=== PATIENT | male | born 1975 | race Caucasian/White ===

== ENCOUNTER → 2016-12-01 | Outpatient (CLI) | payer OTHER ==
[~2016-12-01] MED LIST: IOHEXOL 300 MG/ML 75 ML VIAL. IV ONE
--- NOTE | 2016-12-01 11:27 | RAD ---
CTA of the chest with contrast, 12/01/2016: History: Follow-up dilatation of the aortic root Multidetector CT imaging was performed following an IV bolus injection of iodinated contrast material. Multiplanar reconstructions were produced as well as 3-D volume rendered reconstructions of the aorta. There are extensive pulsation type artifacts at the level of the aortic root and ascending aorta. This makes measurements difficult. On the coronal images, the aortic root measures approximately 3.5 cm in width which is within normal limits. In the other planes its dimension is accentuated by obliquity of orientation. The aortic arch and descending aorta are of normal caliber. No significant calcific plaquing is evident. No coronary artery calcifications are seen. The heart is mildly enlarged. No mediastinal or hilar adenopathy is seen. There is mild dependent atelectasis in both lungs. No pulmonary mass or significant consolidation is seen. There is no evidence of pleural fluid. IMPRESSION: 1. Mild cardiomegaly. 2. The aortic root does not appear to be significantly dilated, although the proximal aorta is not optimally delineated on these scans due to multiple pulsation artifacts. Echocardiography should be considered for further evaluation. PQRS Compliance Statement: One or more of the following individualized dose reduction techniques were utilized for this examination: 1. Automated exposure control 2. Adjustment of the mA and/or kV according to patient size 3. Use of iterative reconstruction technique
== END | disposition home or self-care (01) ==
LOC: CT 07:35
PROVIDERS: ATTEND Internal Medicine Cardiovascular Disease
DX: I51.7 Cardiomegaly (principal); J98.11 Atelectasis; Q23.1 Congenital insufficiency of aortic valve
CPT/HCPCS: 71275; Q9967

== ENCOUNTER → 2018-04-05 | Outpatient (CLI) | payer OTHER ==
--- NOTE | 2018-04-05 11:04 | CARD ---
MR#: [id number] Date of Study: 04/05/2018 Ordering Physician: PETER HUMPHREY, Referring Physician: PETER HUMPHREY, Tech: NOEMI Meng APPROVED REPORT EXAM: Two-dimensional and M-mode echocardiogram with Doppler and color Doppler. Other Information Quality : GoodHR: 57bpm INDICATION Congenital Heart Disease 2D DIMENSIONS RVDd3.5 (2.9-3.5cm)Left Atrium(2D)3.2 (1.6-4.0cm) IVSd1.1 (0.7-1.1cm)Aortic Root(2D)4.1 (2.0-3.7cm) LVDd6.8 (3.9-5.9cm)LVOT Diameter2.8 (1.8-2.4cm) PWd1.1 (0.7-1.1cm)LVDs4.5 (2.5-4.0cm) FS (%) 34.4 %SV150.8 ml LVEF(%)62.1 (>50%) Aortic Valve AoV Peak Fabio.145.2cm/sAoV VTI35.1cm AO Peak GR.8.4mmHgLVOT Peak Fabio.76.5cm/s LVOT VTI 18.25cmAO Mean GR.5mmHg GARTH (VMAX)3.37sh1SMH (VTI)3.12cm2 AI P 1/2 Sqpn840qk Mitral Valve MV E Ssowjpgy55.5cm/sMV DECEL LNZN549ps MV A Qftvoiiy64.4cm/sE/A Ratio1.6 Pulmonary Valve PV Peak Lthkmufx717.6cm/sPV Peak Grad.7mmHg LEFT VENTRICLE The Left Ventricle is mild to moderately dilated. LVIDD - 6.8 cm (limited measurement) There is vernon l left ventricular wall thickness. The left ventricular systolic function is normal. EF 55% There is normal LV segmental wall motion. The left ventricular diastolic function and filling is normal for ag e. RIGHT VENTRICLE The right ventricle is normal size. The right ventricular systolic function is normal. ATRIA The left atrium size is normal. The right atrium size is normal. The interatrial septum is intact wit h no evidence for an atrial septal defect or patent foramen ovale as noted on 2-D or Doppler imaging. AORTIC VALVE The aortic valve is bicuspid. The aortic valve is mildly thickened. Doppler and Color Flow revealed a n eccentric jet of aortic insufficiency directed against the anterior mitral leaflet. Doppler and Col or Flow revealed mild to moderate aortic regurgitation. There is no significant aortic valvular steno sis. There is no aortic valvular vegetation. MITRAL VALVE The mitral valve is mildly thickened. There is no evidence of mitral valve prolapse. There is no mitr al valve stenosis. Doppler and Color Flow revealed no mitral valve regurgitation noted. TRICUSPID VALVE The tricuspid valve leaflets are thickened , but open well. Doppler and Color Flow revealed no tricus pid valve regurgitation noted. There is no tricuspid valve prolapse or vegetation. There is no tricus pid valve stenosis. PULMONIC VALVE The pulmonary valve is normal in structure and function. Doppler and Color Flow revealed no pulmonic valvular regurgitation. There is no pulmonic valvular stenosis. GREAT VESSELS The aortic root is mildly enlarged. The IVC was not visualized. PERICARDIAL EFFUSION There is no pleural effusion. There is no evidence of significant pericardial effusion. Critical Notification Critical Value: No <Conclusion> The Left Ventricle is mild to moderately dilated. LVIDD - 6.8 cm (limited measurement) The left ventricular systolic function is normal. EF 55% There is normal LV segmental wall motion. The aortic valve is bicuspid. The aortic valve is mildly thickened. Doppler and Color Flow revealed an eccentric jet of aortic insufficiency directed against the anterio r mitral leaflet. Doppler and Color Flow revealed mild to moderate aortic regurgitation. Signed by : Peter Humphrey, Electronically Approved : 04/05/2018 11:02:59
== END | disposition home or self-care (01) ==
LOC: ECHO 08:07
PROVIDERS: ATTEND Internal Medicine Cardiovascular Disease
DX: I35.1 Nonrheumatic aortic (valve) insufficiency (principal)
CPT/HCPCS: 93306

== ENCOUNTER 2020-02-11 01:14 | Emergency (ER) | payer OTHER ==
[~2020-02-11] VITALS: Ht 180.3 cm; Wt 109.6 kg
--- NOTE | 2020-02-11 01:20 | PHYS DOC ---
Past History Past Medical History: Kidney Stones General Adult HPI: HPI: ".. I ve been having this pain .. on and off the past couple weeks.. they did an US the other day.. in case it was a gall bladder.. but they said it was negative... the pain came on really strong tonight... in this Rt. flank radiates down.. It is kind like when I had a kidney stone a long time ago..." Patient is a 45 year old male who presents with above hx and complaints of severe right flank abdomen pain that radiates to his groin area. Patient states pain is similar to a previous episode of kidney stones. Patient underwent a ultrasound this week at [place] at that time they advised that his gallbladder w as normal. Did eat at approximately 7:30 PM. No history of bad food. No history of recent travel outside the [place] area. No specific ill contacts. Patient states pain awoke him from sleep and feels like someone is stabbing him in his right flank. Patient is nauseated. Has had diaphoresis. Patient denies any trauma. Patient does have a family history of kidney stones with grandfather. Review of Systems: Review of Systems: Constitutional: Denies fever or chills Eyes: Denies change in visual acuity HENT: Denies nasal congestion or sore throat Respiratory: Denies cough or shortness of breath Cardiovascular: Denies chest pain or edema GI: Complaints of Rt. flank abdominal pain, nausea, . Denies vomiting, bloody stools or diarrhea : Denies dysuria Musculoskeletal: Complaints of Lt. flank pain. Integument: Denies rash Neurologic: Denies headache, focal weakness or sensory changes Endocrine: Denies polyuria or polydipsia Lymphatic: Denies swollen glands Psychiatric: Denies depression or anxiety Heart Score: HEART Score for Chest Pain: HEART Score for Chest Pain Response (Comments) Value History Slighlty/Non-Suspicious 0 ECG Nonspecific Repolarizatio 1 Age >45 - < 65 1 Risk Factors 1 or 2 Risk Factors 1 Troponin < Normal Limit 0 Total 3 Risk Factors: Risk Factors: DM, Current or recent (<one month) smoker, HTN, HLP, family history of CAD, obesity. Risk Scores: Score 0 - 3: 2.5% MACE over next 6 weeks - Discharge Home Score 4 - 6: 20.3% MACE over next 6 weeks - Admit for Clinical Observation Score 7 - 10: 72.7% MACE over next 6 weeks - Early Invasive Strategies Family History: Family History: Kidney stones with grandfather Current Medications: Current Meds: See nursing for home meds Allergies: Allergies: Allergies Coded Allergies Type Severity Reaction Last Updated Verified No Known Drug Allergies 06/03/16 No Physical Exam: PE: Constitutional: , in acute distress, non-toxic appearance. [] HENT: Normocephalic, atraumatic, bilateral external ears normal, oropharynx moist, no oral exudates, nose normal. [] Eyes: PERRLA, EOMI, conjunctiva normal, no discharge. [] Glasses Neck: Normal range of motion, no tenderness, supple, no stridor. [] Cardiovascular: Tachycardia heart rate regular rhythm, aortic murmur [] Lungs & Thorax: Bilateral breath sounds equal apex on auscultation [] Abdomen: Bowel sounds decreased, soft, right flank tenderness, no masses, no pulsatile masses. [] Mild rebound to right flank Skin: Warm, dry, no erythema, no rash. [] Back: No tenderness, right CVA tenderness. [] Extremities: No tenderness, no cyanosis, no clubbing, ROM intact, no edema. [] No psoas muscle sign. Neurologic: Alert and oriented X 3, normal motor function, normal sensory funct ion, no focal deficits noted. [] Psychologic: Affect anxious , judgement normal, mood normal. [] EKG: EKG: My interpretation EKG shows a sinus rhythm at 70 bpm. Does have leftward axis changes. But no findings of acute STEMI with contralateral changes [] Radiology/Procedures: Radiology/Procedures: [][address] [address] IMAGING REPORT Signed PATIENT: ADEEL FONTAINE ACCOUNT: [id number] : 1975 LOCATION: ER AGE: 45 SEX: M EXAM STATUS: REG ER ORD. PHYSICIAN: SNOW FAIRCHILD MD REASON: pain PROCEDURE: CT ABDOMEN PELVIS WO CONTRAST CT scan abdomen and pelvis without contrast 02/11/2020 CLINICAL HISTORY: Abdominal pain. TECHNIQUE: Unenhanced, contiguous, 3 mm axial sections were obtained through abdomen and pelvis. One or more of the following individualized dose reduction techniques were utilized for this study: 1. Automated exposure control. 2. Adjustment of the mA and/or kV according to patient size. 3. Use of iterative reconstruction technique. FINDINGS: Images through the lung bases demonstrate minimal dependent subsegmental atelectasis bilaterally. The liver parenchyma has a decreased attenuation consistent with mild fatty infiltration. The spleen, pancreas, and adrenal glands are within normal limits. Bilateral nonobstructing renal calculi are seen which measure 2 to 3 mm in size. Rounded low-attenuation lesions are seen involving the left kidney which measure 1 to 2.3 cm in size. These likely represent cysts. No further imaging workup is recommended. Mild dilatation of the right intrarenal collecting system is seen. The right ureter is mildly dilated throughout its course. Within the distal right ureter approximately 1 cm lateral to the right UVJ a 4 mm distal right ureteral calculus is seen which is causing mild obstruction of the right collecting system. There is no evidence of obstruction of the left collecting system. The abdominal aorta tapers normally. The gallbladder is contracted. No free fluid or free air is seen within the abdomen. There is no evidence of bowel obstruction. The appendix is well-visualized and is within normal limits. Images through the pelvis demonstrate the urinary bladder to be contracted. No free fluid is seen. Minimal S-shaped curvature of the thoracolumbar spine is noted. IMPRESSION: 4 mm distal right ureteral calculus is seen which is causing mild obstruction of the right collecting system. Electronically signed by: Scottie He MD (02/11/2020 4:24 AM) [id number] DICTATED AND SIGNED BY: SCOTTIE HE MD DATE: 02/11/20 0424 CC: KIARRA LARA; SNOW FAIRCHILD MD ~ Course & Med Decision Making: Course & Med Decision Making Pertinent Labs and Imaging studies reviewed. (See chart for details) Patient to push clear fluids. Take Tylenol and ibuprofen for pain for marked pain may take Vicoprofen. Patient to take Flomax 0.4 mg nightly. Patient warned this may cause hypotension. Save stone if passed. May take Vicoprofen up to 4 times a day for marked pain. Follow-up with urology. Follow-up primary care. Return if any concerns. Patient given a copy of CT findings for him to follow-up at [place]. Return if any concerns. Impression: 1. Abdomen pain 2. Renal Colic-has distal 4 mm right ureter stone with mild hydronephrosis 3. Mild elevation creatinine 1.7 4. Diabetes glucose 144 [] Dragon Disclaimer: Dragon Disclaimer: This electronic medical record was generated, in whole or in part, using a voice recognition dictation system. Departure Departure: Disposition: HOME/RESIDENCE PRIOR TO ADM Condition: STABLE Referrals: KIARRA LARA (PCP) Scripts Tamsulosin Hcl (FLOMAX) 0.4 Mg Cap.er.24h 0.4 MG PO DAILY for kidney stone, #30 CAP.SR Prov: SNOW FAIRCHILD MD 02/11/20 Hydrocodone/Ibuprofen (HYDROCODONE-IBUPROFEN 7.5-200 ) 1 Each Tablet 1 TAB PO PRN Q6HRS PRN for PAIN, #30 TAB 0 Refills Prov: SNOW FAIRCHILD MD 02/11/20 Ondansetron Hcl (ZOFRAN) 8 Mg Tablet 8 MG PO QIDPRN PRN for active nausea and vomiting, #30 BOT Prov: SNOW FAIRCHILD MD 02/11/20 Justification of Admission: Justification of Admission: Justification of Admission Dx: N/A Dragon Disclaimer This chart was dictated in whole or in part using Voice Recognition software in a busy, high-work load, and often noisy Emergency Department environment. It may contain unintended and wholly unrecognized errors or omissions. SNOW FAIRCHILD MD Feb 11, 2020 01:20
[2020-02-11] MEDS ORDERED: FAMOTIDINE 20 MG/2 ML VIAL IVP ONE (01:45)
[2020-02-11] MEDS ORDERED: ONDANSETRON PF 4 MG/2 ML VIAL. IVP ONE (01:45)
[2020-02-11] MEDS ORDERED: KETOROLAC 30 MG/ML VIAL. IVP ONE (01:45)
[2020-02-11] MEDS ORDERED: MORPHINE SULFATE 10 MG/ML SYRINGE. SQ ONE (01:45)
[2020-02-11] MEDS ORDERED: IV RINGERS SOLUTION,LACTATED 1,000 ML IV SCH (01:45)
[2020-02-11 02:55] LABS: BASO % 0 % (0-3); EOS # 0.1 x10^3/uL (0.0-0.7); EOS % 1 % (0-3); HEMATOCRIT 47.1 % (39.0-53.0); HEMOGLOBIN 16.4 g/dL (13.0-17.5); LYMPH # 1.7 x10^3/uL (1.0-4.8); LYMPH % 20 % (24-48); MEAN CORPUSCULAR HEMOGLOBIN 32 pg (25-35); MEAN CORPUSCULAR HGB CONC 35 g/dL (31-37); MEAN CORPUSCULAR VOLUME 92 fL (79-100); MONO # 0.6 x10^3/uL (0.0-1.1); MONO % 7 % (0-9); NEUT % 71 % (31-73); PLATELET COUNT 234 x10^3/uL (140-400); RED BLOOD COUNT 5.13 x10^6/uL (4.30-5.70); RED CELL DISTRIBUTION WIDTH 12.6 % (11.5-14.5); WHITE BLOOD COUNT 8.5 x10^3/uL (4.0-11.0)
--- NOTE | 2020-02-11 03:37 | EKG ---
[address] [address] Test Date: 2020-02-11 Test Time: 02:56:16 Pat Name: ADEEL FONTAINE Department: Room: Gender: M Dental Technician: : 1975 Requested By: SNOW FAIRCHILD Order Number: [id number] Reading MD: Measurements Intervals [place] Rate: 70 P: 55 NV: 182 QRS: -6 QRSD: 84 T: -6 QT: 400 QTc: 435 Interpretive Statements SINUS RHYTHM LEFTWARD AXIS OTHERWISE NORMAL ECG RI6.02 No previous ECG available for comparison
[2020-02-11 04:00] LABS: ALBUMIN 3.7 g/dL (3.4-5.0); CALCIUM 8.8 mg/dL (8.5-10.1); TOTAL PROTEIN 7.6 g/dL (6.4-8.2)
[2020-02-11 04:01] LABS: CREATININE 1.7 mg/dL (0.7-1.3); DIRECT BILIRUBIN 0.2 mg/dL (0.0-0.2); GFR 43.8; POTASSIUM 3.7 mmol/L (3.5-5.1); TOTAL BILIRUBIN 0.5 mg/dL (0.2-1.0)
--- NOTE | 2020-02-11 04:27 | RAD ---
CT scan abdomen and pelvis without contrast 02/11/2020 CLINICAL HISTORY: Abdominal pain. TECHNIQUE: Unenhanced, contiguous, 3 mm axial sections were obtained through abdomen and pelvis. One or more of the following individualized dose reduction techniques were utilized for this study: 1. Automated exposure control. 2. Adjustment of the mA and/or kV according to patient size. 3. Use of iterative reconstruction technique. FINDINGS: Images through the lung bases demonstrate minimal dependent subsegmental atelectasis bilaterally. The liver parenchyma has a decreased attenuation consistent with mild fatty infiltration. The spleen, pancreas, and adrenal glands are within normal limits. Bilateral nonobstructing renal calculi are seen which measure 2 to 3 mm in size. Rounded low-attenuation lesions are seen involving the left kidney which measure 1 to 2.3 cm in size. These likely represent cysts. No further imaging workup is recommended. Mild dilatation of the right intrarenal collecting system is seen. The right ureter is mildly dilated throughout its course. Within the distal right ureter approximately 1 cm lateral to the right UVJ a 4 mm distal right ureteral calculus is seen which is causing mild obstruction of the right collecting system. There is no evidence of obstruction of the left collecting system. The abdominal aorta tapers normally. The gallbladder is contracted. No free fluid or free air is seen within the abdomen. There is no evidence of bowel obstruction. The appendix is well-visualized and is within normal limits. Images through the pelvis demonstrate the urinary bladder to be contracted. No free fluid is seen. Minimal S-shaped curvature of the thoracolumbar spine is noted. IMPRESSION: 4 mm distal right ureteral calculus is seen which is causing mild obstruction of the right collecting system. Electronically signed by: Scottie He MD (02/11/2020 4:24 AM) [id number]
[2020-02-11] MEDS ORDERED: TAMSULOSIN 0.4 MG CAP.ER.24H. PO ONE (04:45)
[2020-02-11] MEDS ORDERED: HYDR-1179 PO (04:48)
[2020-02-11] MEDS ORDERED: ONDA8TAB9 PO (04:48)
[2020-02-11] MEDS ORDERED: TAMS0.4C97 PO (04:48)
[2020-02-11] MEDS ORDERED: IV RINGERS SOLUTION,LACTATED 1,000 ML IV ONE (05:00)
--- NOTE | 2020-02-11 06:01 | RAD ---
Acute abdominal series to include a PA chest 02/11/2020 Clinical History: Abdominal pain A PA digital radiograph of the chest was obtained. Supine and erect AP digital radiographs of the abdomen/pelvis were obtained. The cardiac and mediastinal silhouettes are within normal limits in size and configuration. No pulmonary infiltrate is seen. No pleural effusion or pneumothorax is noted. The abdominal bowel gas pattern is nonobstructive. A moderate amount of stool is seen involving the ascending colon. Calcifications are seen pelvis consistent with phleboliths. There is no evidence of free air. A 4 mm calcification is seen in the right pelvis which may be within the distal right ureter. Clinical correlation is recommended. The osseous structures are grossly intact. Impression: Question 4 mm distal right ureteral calculus. Electronically signed by: Scottie He MD (02/11/2020 5:58 AM) [id number]
[2020-02-11 06:10] LABS: AMPHETAMINE/METHAMPHETAMINE NEG (NEG); BARBITURATES NEG (NEG); BENZODIAZEPINES NEG (NEG); COCAINE NEG (NEG); METHADONE NEG (NEG); OPIATES POS (NEG)
[2020-02-11 06:11] LABS: CANNABINOIDS NEG (NEG); PHENCYCLIDINE NEG (NEG)
[2020-02-11 06:14] LABS: BILIRUBIN,URINE NEG (NEG); CLARITY,URINE HAZY; COLOR,URINE YELLOW; GLUCOSE,URINE NEG (NEG)
[2020-02-11 06:15] LABS: BACTERIA,URINE FEW /HPF (0-FEW); NITRITE,URINE NEG (NEG); SQUAMOUS EPITHELIAL CELL,UR OCC /LPF; UROBILINOGEN,URINE 0.2 mg/dL (0.2 mg/dL); WBC,URINE 0 /HPF (0-4)
[2020-02-11 06:25] VITALS: BP 141/84
== END 2020-02-11 06:30 | disposition home or self-care (01) ==
LOC: ER 01:14
DX: N13.2 Hydronephrosis with renal and ureteral calculous obstruction (principal); R94.4 Abnormal results of kidney function studies; E11.9 Type 2 diabetes mellitus without complications; Z87.442 Personal history of urinary calculi
CPT/HCPCS: 36415; 74022; 74176; 80048; 80076; 80307; 81001; 82150; 83690; 85025; 85610; 85730; 93005; 96372; 96374; 96375; 99285; J1885; J2270; J2405; J3490; J7120